=== PATIENT | female | born 1960 | race Caucasian/White ===

== ENCOUNTER 2018-10-22 08:50 | Outpatient (CLI) | payer BC ==
--- NOTE | 2018-10-22 15:48 | MRI Report ---
Reason: PAIN IN RIGHT FOOT Procedure Date: 10/22/2018 Accession Number: [id number] / [id number] Procedure: MRI - Foot RT W/O CPT Code: FULL RESULT: EXAM: RIGHT MIDFOOT MRI WITHOUT CONTRAST EXAM DATE: 10/22/2018 09:53 AM. CLINICAL HISTORY: PAIN IN RIGHT FOOT. COMPARISON: MRI performed 09/13/2011 RT FOOT 09/13/2011 8:56 AM. TECHNIQUE: Multiplanar, multisequence T1-weighted and fluid-sensitive sequences of the midfoot without contrast. Other: None. FINDINGS: Bones: Moderate marrow edema and subchondral cyst formation in the proximal aspect of the medial cuneiforms consistent with mild naviculocuneiform osteoarthritis, unchanged. Minimal first MTP osteoarthritis is slightly less apparent due to improvement in previously evident subchondral marrow edema. Tiny marginal osteophytes are unchanged. Osseous structures elsewhere are normal. Normal alignment. No fracture. No signs of stress injury. Tendons: The extensor digitorum tenosynovitis at the level of the ankle seen previously is incompletely assessed on today's study as these images did not extend as far proximally as the location of the tenosynovitis on the prior study. The visible flexor and extensor tendons today are normal. Musculature: No edema or fatty atrophy. Other: Tiny intermetatarsal bursal effusions in the second and third intermetatarsal spaces suggesting mild intermetatarsal bursitis, unchanged. No signs of Sage's neuroma. The subcutaneous tissues are unremarkable. IMPRESSION: 1. Mild navicular-medial cuneiform and very mild first MTP osteoarthritis, not significantly changed other than mild improvement in previously evident marrow edema in the first metatarsal head due to the first MTP osteoarthritis. No acute osseous abnormality. 2. Mild intermetatarsal bursitis in the second and third intermetatarsal spaces. This is unchanged. 3. No new abnormality. [facility] MUSCULOSKELETAL RADIOLOGY SECTION
== END 2018-10-22 08:51 | disposition home or self-care (01) ==
LOC: DI 08:50
PROVIDERS: ATTEND Orthopaedic Surgery Sports Medicine
DX: M19.071 Primary osteoarthritis, right ankle and foot (principal); M71.571 Other bursitis, not elsewhere classified, right ankle and foot

== ENCOUNTER 2020-05-02 16:08 | Outpatient (CLI) | payer BC ==
--- NOTE | 2020-05-02 17:42 | XRAY Report ---
PROCEDURE: Shoulder 2 View RT INDICATIONS: upper ext px, hx of br ca TECHNIQUE: 2 views of the shoulder were acquired. COMPARISON: None. FINDINGS: Bones: No fractures or dislocations. No suspicious bony lesions. Visualized ribs appear intact. Soft tissues: No suspicious soft tissue calcifications. Clips are present overlying the right axill a. IMPRESSION: No acute osseous abnormality. Reviewed by: Angelique Trujillo MD on 05/02/2020 5:41 PM PDT Approved by: Angelique Trujillo MD on 05/02/2020 5:41 PM PDT Station ID: [id number]
--- NOTE | 2020-05-02 17:43 | XRAY Report ---
PROCEDURE: Humerus RT INDICATIONS: upper extremity px, hx of br ca TECHNIQUE: 2 views of the humerus were acquired. COMPARISON: X-ray shoulder 05/02/2020 FINDINGS: Bones: No fractures or dislocations. No suspicious bony lesions. Soft tissues: No suspicious soft tissue calcifications. Clips are noted overlying the right axilla. IMPRESSION: No acute osseous abnormality. Reviewed by: Angelique Trujillo MD on 05/02/2020 5:42 PM PDT Approved by: Angelique Trujillo MD on 05/02/2020 5:42 PM PDT Station ID: [id number]
== END 2020-05-02 16:09 | disposition home or self-care (01) ==
LOC: DI 16:08
PROVIDERS: ATTEND Nurse Practitioner
DX: M25.511 Pain in right shoulder (principal); Z85.3 Personal history of malignant neoplasm of breast

== ENCOUNTER 2022-02-06 12:47 | Outpatient (CLI) | payer BC ==
--- NOTE | 2022-02-06 16:30 | DEXA Report ---
PROCEDURE: Dexa Spine and/or Hip INDICATIONS: OSTEOPENIA TECHNIQUE: Dual energy x-ray absorptiometry (DXA) was performed on a [email or web address] System. Regions measur ed are the AP Spine, femoral neck, and if needed forearm. COMPARISON: None. FINDINGS: Lumbar Spine: Bone Mineral Density 0.9 g/cm/cm,T score -1.6, osteopenia Left Hip: Bone Mineral Density 0.8 g/cm/cm,T score -1.7, osteopenia Impression: Osteopenia of the lumbar spine and left hip. Patients with diagnosis of osteoporosis or osteopenia should have regular bone mineral density assess ment. For those eligible for Medicare, routine testing is allowed once every 2 years. Testing frequ ency can be increased for patients who have rapidly progressing disease or for those who are receivin g medical therapy to restore bone mass. Reviewed by: Inderjit Pedraza MD on 02/06/2022 4:28 PM PDT Approved by: Inderjit Pedraza MD on 02/06/2022 4:28 PM PDT Station ID: [id number]
== END 2022-02-06 12:48 | disposition home or self-care (01) ==
LOC: DI 12:47
PROVIDERS: ATTEND Obstetrics & Gynecology
DX: M85.89 Other specified disorders of bone density and structure, multiple sites (principal)